=== PATIENT | female | born 1950 | race Caucasian/White ===

== ENCOUNTER → 2016-12-10 | Outpatient (CLI) | payer BC ==
[~2016-12-10] MED LIST: ACET-461 PO; ACYC400T PO; ASP81TEC PO; Acetaminophen PO; CATHETER FLUSH 10 ML SYR IV PRN; CEPH500T PO; CHOL100011 PO; CHOL10003 PO; ESTR42.52 VG; FEXO180T84 PO; IOHEXOL 350 MG/ML 100 ML (OMNIPAQUE 350) VIAL IV ONE; MULT-974 PO; NS 100 ML (IVPB) BAG IV ONE; OMEG1CAP51 PO; ONDA8TAB13 PO
--- OUTSIDE RECORDS SUMMARY | 2016-12-10 07:26 | XMS REPORT | Continuity of Care Document ---
Author Author [facility] Organization [facility] Address Unknown Phone Unavailable Care Team Providers Care Admin Secretary Name Role Phone SOREN LUJAN DO PCP Insurance Providers Payer Name Policy Number Sub[id number] Shaun Bain 18 Self / Same As Patient Advance Directives Directive Response Recorded Date/Time Advance Directives No 04/29/16 1:33am Health Care Power of Tumbling And Rolling Supervisor No 04/29/16 1:33am Organ Donor Yes 04/29/16 1:33am Resuscitation Status Full Code 04/29/16 1:33am Chief Complaint and Reason for Visit Chief Complaint Head/Cervical Problems Reason for Visit Palpitations Headache Disequilibrium Problems Active Problems Medical Problem Onset Date Status Chest pain Unknown Acute Closed head injury Unknown Acute Closed head injury Unknown Acute Disequilibrium Unknown Acute Headache Unknown Acute Migraine Unknown Acute Palpitations Unknown Acute Syncope Unknown Acute Medications Current Home Medications Medication Dose Units Route Directions Days/Qty Instructions Start Date Acyclovir 400 Mg 400 Mg Oral Daily 05/07/14 Estradiol 42.5 Gm 2 Gm Vaginal Tuesday & 05/07/14 Multivitamin 1 Each 2 Tab Oral Daily 05/07/14 Cholecalciferol 1,000 Unit 1,000 Unit Oral Daily 05/07/14 [place]-3 Fatty Acids/Fish Oil 1 Each 2,000 Mg Oral Daily 05/07/14 Acetaminophen 500 Mg 500 Mg Oral Daily as needed for Pain 05/07/14 Ondansetron 8 Mg 8 Mg Oral Every 6 Hours as needed for Nausea/Vomiting 10 05/07/14 Past Home Medications Medication Directions Ordered Status Acyclovir 400 Mg Tablet, 400 Mg Oral Daily 04/19/14 Discontinued Estradiol 42.5 Gm Cream.appl, 1 Applic Vaginal As Directed 04/19/14 Discontinued Aspirin 81 Mg Tabec, 162 Mg Oral Daily 04/19/14 Discontinued Multivitamin 1 Each Tablet, 2 Each Oral Daily 04/19/14 Discontinued Fexofenadine Hcl 180 Mg Tablet, 180 Mg Oral Daily 04/19/14 Discontinued Cholecalciferol 1,000 Unit Tablet, 1000 Unit Oral Daily 04/19/14 Discontinued [Acetaminophen] 500 Mg Tab, 1000 Mg Oral Every 6 Hours as needed for Pain Discontinued Social History Social History Problem Response Recorded Date/Time Alcohol Use Denies Use 04/29/2016 1:33am Recreational Drug Use No 04/29/2016 1:33am Recent Foreign Travel No 04/29/2016 1:33am Recent Infectious Disease Exposure No 04/29/2016 1:33am Smoking Status Never a Smoker 04/29/2016 1:33am Query Response Start Date Stop Date Smoking Status Never a Smoker Hospital Discharge Instructions No hospital discharge instructions. Plan of Care Discharge Date 04/29/16 4:40am Disposition 01 HOME, SELF-CARE Condition at Discharge Improved Instructions/Education Provided Palpitations (ED) Prescriptions See Medication Section Referrals SOREN LUJAN DO - Primary Care Physician Additional Instructions/Education Stay well-hydrated. Follow-up with Dr. Lujan as soon as possible. Discuss the possibility of a neurology referral with Dr. Lujan. All discharge instructions reviewed with patient and/or family. Voiced understanding. Functional Status Query Response Date Recorded Patient Orientation Person Place Time April 29, 2016 1:43am Comprehension Ability Understands Concepts April 29, 2016 1:43am Allergies, Adverse Reactions, Alerts Allergen Type Severity Reaction Status Last Updated Sulfa (Sulfonamide Antibiotics) ([id number]) Allergy Unknown Active 08/23 Immunizations No immunization records. Vital Signs Acute Vital Signs Vital Response Date/Time Temperature (Fahrenheit) 97.5 degrees F (97.6 - 99.5) 04/29/2016 1:33am Temperature (Calculated Celsius) 36.08697 degrees C (36.4 - 37.5) 04/29/2016 1:33am Temperature Source Temporal 04/29/2016 1:33am Pulse Rate (adult) 75 bpm (60 - 90) 04/29/2016 1:33am Respiratory Rate 18 bpm (12 - 24) 04/29/2016 1:33am O2 Sat by Pulse Oximetry 97 % (88 - 100) 04/29/2016 1:33am Blood Pressure 154/102 mm Hg 04/29/2016 1:33am Blood Pressure Mean 119 mm Hg 04/29/2016 1:33am Pain Numeric Pain Scale 5-Moderate Pain 04/29/2016 1:33am Height (Feet) 5 feet 04/29/2016 1:33am Height (Inches) 7 inches 04/29/2016 1:33am Height (Calculated Centimeters) 170.223411 cm 04/29/2016 1:33am Weight (Pounds) 135 pounds 04/29/2016 1:33am Weight (Ounces) 8.0 oz 04/29/2016 1:33am Weight (Calculated Grams) 02347.824 gm 04/29/2016 1:33am Weight (Calculated Kilograms) 61.220160 kilograms 04/29/2016 1:33am Calculated BMI 20.05 04/29/2016 1:33am Results Laboratory Results Test Name Result Units Flags Reference Collection Date/Time Result Date/ Time Comments White Blood Count 6.6 10^3/uL 4.3-11.0 04/29/2016 2:00am 04/29/2016 2: 12am Red Blood Count 4.93 10^6/uL 4.35-5.85 04/29/2016 2:00am 04/29/2016 2: 12am Hemoglobin 15.1 G/DL 11.5-16.0 04/29/2016 2:00am 04/29/2016 2:12am Hematocrit 44 % 35-52 04/29/2016 2:00am 04/29/2016 2:12am Mean Corpuscular Volume 89 FL 80-99 04/29/2016 2:00am 04/29/2016 2: 12am Mean Corpuscular Hemoglobin 31 PG 25-34 04/29/2016 2:00am 04/29/2016 2: 12am Mean Corpuscular Hemoglobin Concent 35 G/DL 32-36 04/29/2016 2:00am 2:12am Red Cell Distribution Width 13.5 % 10.0-14.5 04/29/2016 2:002015 2:12am Platelet Count 303 10^3/uL 130-400 04/29/2016 2:0004/29/2016 2:12am Mean Platelet Volume 10.0 FL 7.4-10.4 04/29/2016 2:00am 04/29/2016 2: 12am Neutrophils (%) (Auto) 45 % 42-75 04/29/2016 2:0004/29/2016 2:12am Lymphocytes (%) (Auto) 43 % 12-44 04/29/2016 2:0004/29/2016 2:12am Monocytes (%) (Auto) 7 % 0-12 04/29/2016 2:0004/29/2016 2:12am Eosinophils (%) (Auto) 4 % 0-10 04/29/2016 2:0004/29/2016 2:12am Basophils (%) (Auto) 1 % 0-10 04/29/2016 2:0004/29/2016 2:12am Neutrophils # (Auto) 3.0 X 10^3 1.8-7.8 04/29/2016 2:00am 04/29/2016 2: 12am Lymphocytes # (Auto) 2.9 X 10^3 1.0-4.0 04/29/2016 2:0004/29/2016 2: 12am Monocytes # (Auto) 0.5 X 10^3 0.0-1.0 04/29/2016 2:0004/29/2016 2: 12am Eosinophils # (Auto) 0.2 10^3/uL 0.0-0.3 04/29/2016 2:0004/29/2016 2 :12am Basophils # (Auto) 0.1 10^3/uL 0.0-0.1 04/29/2016 2:0004/29/2016 2: 12am Urine Color YELLOW 04/29/2016 1:4504/29/2016 2:18am Urine Clarity CLEAR 04/29/2016 1:4504/29/2016 2:18am Urine pH 7 5-9 04/29/2016 1:4504/29/2016 2:18am Urine Specific [place] 1.005 * 1.016-1.022 04/29/2016 1:45am 2015 2:18am Urine Protein NEGATIVE NEGATIVE 04/29/2016 1:45am 04/29/2016 2:18am Urine Glucose (UA) NEGATIVE NEGATIVE 04/29/2016 1:45am 04/29/2016 2: 18am Urine RBC (Auto) NEGATIVE NEGATIVE 04/29/2016 1:45am 04/29/2016 2: 18am Urine Ketones NEGATIVE NEGATIVE 04/29/2016 1:45am 04/29/2016 2:18am Urine Nitrite NEGATIVE NEGATIVE 04/29/2016 1:45am 04/29/2016 2:18am Urine Bilirubin NEGATIVE NEGATIVE 04/29/2016 1:45am 04/29/2016 2: 18am Urine Urobilinogen NORMAL MG/DL NORMAL 04/29/2016 1:45am 04/29/2016 2: 18am Urine Leukocyte Esterase NEGATIVE NEGATIVE 04/29/2016 1:45am 2015 2:18am Urine RBC NONE /HPF 04/29/2016 1:45am 04/29/2016 2:18am Urine WBC RARE /HPF 04/29/2016 1:45am 04/29/2016 2:18am Urine Bacteria TRACE /HPF 04/29/2016 1:45am 04/29/2016 2:18am Urine Squamous Epithelial Cells 0-2 /HPF 04/29/2016 1:45am 2015 2:18am Urine Crystals NONE /LPF 04/29/2016 1:45am 04/29/2016 2:18am Urine Casts NONE /LPF 04/29/2016 1:45am 04/29/2016 2:18am Urine Mucus NEGATIVE /LPF 04/29/2016 1:45am 04/29/2016 2:18am Urine Culture Indicated NO 04/29/2016 1:45am 04/29/2016 2:18am Sodium Level 135 MMOL/L 135-145 04/29/2016 2:00am 04/29/2016 2:40am Potassium Level 3.4 MMOL/L L 3.6-5.0 04/29/2016 2:00am 04/29/2016 2:40am Chloride Level 101 MMOL/L 98-107 04/29/2016 2:00am 04/29/2016 2:40am Carbon Dioxide Level 22 MMOL/L 21-32 04/29/2016 2:00am 04/29/2016 2: 40am Anion Gap 12 MMOL/L 5-14 04/29/2016 2:00am 04/29/2016 2:40am Blood Urea Nitrogen 15 MG/DL 7-18 04/29/2016 2:00am 04/29/2016 2:40am Creatinine 0.87 MG/DL 0.60-1.30 04/29/2016 2:00am 04/29/2016 2:40am BUN/Creatinine Ratio 17 04/29/2016 2:00am 04/29/2016 2:40am Estimat Glomerular Filtration Rate > 60 04/29/2016 2:00am 2015 2:40am GFR INTERPRETIVE DATA UNITS FOR ESTIMATED GFR (eGFR): mL/min/1.73 M2 REFERENCE RANGE FOR ESTIMATED GFR (eGFR) eGFR NORMAL eGFR >60 MODERATELY DECREASED eGFR 30-59 SEVERLY DECREASED eGFR 15-29 KIDNEY FAILURE <15 (OR DIALYSIS) Glucose Level 104 MG/DL 70-105 04/29/2016 2:00am 04/29/2016 2:40am Glucometer 95 MG/DL 70-110 04/29/2016 2:46am 04/29/2016 2:54am Calcium Level 9.7 MG/DL 8.5-10.1 04/29/2016 2:00am 04/29/2016 2:40am Magnesium Level 2.3 MG/DL 1.8-2.4 04/29/2016 2:00am 04/29/2016 2:40am Total Bilirubin 0.3 MG/DL 0.1-1.0 04/29/2016 2:00am 04/29/2016 2:40am Alkaline Phosphatase 61 U/L 40-136 04/29/2016 2:00am 04/29/2016 2:40am Aspartate Amino Transf (AST/SGOT) 50 U/L H 5-34 04/29/2016 2:00am 2015 2:40am Alanine Aminotransferase (ALT/SGPT) 51 U/L 0-55 04/29/2016 2:00am 04/29 2:40am Total Creatine Kinase 94 U/L 29-168 04/29/2016 2:00am 04/29/2016 3: 07am Total Protein 7.0 G/DL 6.4-8.2 04/29/2016 2:00am 04/29/2016 2:40am Albumin 4.4 G/DL 3.2-4.5 04/29/2016 2:00am 04/29/2016 2:40am TSH [place] Testing 3.98 UIU/ML 0.35-4.94 04/29/2016 2:00am 04/29/2016 2:51am Procedures Procedure Status Date Provider(s) Tracing only of electrocardiogram Active 04/29/16 BEBE KENNEY MD Encounters Encounter Location Arrival/Admit Date Discharge/Depart Date Attending Provider Departed Emergency Room [facility] 04/29/16 1:31am 04/29 4:40am BEBE KENNEY MD Recent Diagnosis
[2016-12-10 08:03] LABS: ANION GAP 10 MMOL/L (5-14); BLOOD UREA NITROGEN 14 MG/DL (7-18); BUN/CREATININE RATIO 17; CALCIUM 9.1 MG/DL (8.5-10.1); CARBON DIOXIDE 24 MMOL/L (21-32); CHLORIDE 107 MMOL/L (98-107); CREATININE SERUM 0.83 MG/DL (0.60-1.30); GFR ESTIMATED > 60; GLUCOSE 94 MG/DL (70-105); SODIUM 141 MMOL/L (135-145)
--- NOTE | 2016-12-10 09:09 | Diagnostic Imaging Report ---
PROCEDURE: CT abdomen and pelvis with and without contrast. TECHNIQUE: Precontrast acquisitions were acquired through the abdomen and pelvis. Multiple contiguous axial images were obtained through the abdomen and pelvis after the administration of intravenous contrast. INDICATION: Urinary tract or bladder pain, blood in urine. FINDINGS: There is a lobulated filling defect within the urinary bladder at its base eccentric to the left measuring 2.9 cm AP by about 3.3 cm transverse. It does show some peripheral hyperdensity on the precontrast enhanced images suggestive of partial calcification. Its density is not appreciably changed with contrast. I am uncertain if this is neoplasm or hematoma. It is at the level of the left trigone but did not obstruct the left ureter and there is no hydroureteronephrosis. The kidneys themselves appeared normal. The lung bases are nonacute. There is no liver mass. The gallbladder and bile ducts unremarkable. Adrenals, spleen and pancreas unremarkable. There is no abdominal, pelvic, mesenteric or retroperitoneal lymphadenopathy. Uterus absent or atrophic. There is no adnexal lesion. Lung bases and the osseous structures unremarkable. IMPRESSION: 1. Left paramedian bladder base filling defect partially calcified peripherally, heterogeneous in its density. We could not confirm definite enhancement following contrast but it could be masked by bladder contrast excretion. Its morphology is suspicious for neoplasm however organized hematoma could not be excluded. It did not result in hydronephrosis or ureteral obstruction and there is no lymphadenopathy or findings suggestive of metastatic disease. Cystoscopy may provide additional utility. 2. Study is otherwise normal. Dictated by: Dictated on workstation # [id number]
== END ==
LOC: RAD 07:22
PROVIDERS: ATTEND Internal Medicine
DX: R31.9 Hematuria, unspecified (principal)
CPT/HCPCS: 36415; 74178; 80048

== ENCOUNTER 2017-02-19 04:39 | Emergency (ER) | payer BC ==
[~2017-02-19] VITALS: Ht 170.2 cm; Wt 61.5 kg
[~2017-02-19 04:39] MED LIST changes: -CATHETER FLUSH 10 ML SYR IV PRN; -CEPH500T PO; -IOHEXOL 350 MG/ML 100 ML (OMNIPAQUE 350) VIAL IV ONE; -NS 100 ML (IVPB) BAG IV ONE
--- NOTE | 2017-02-19 05:03 | ED GU-Female ---
General Chief Complaint: -Female Stated Complaint: VAG BLEEDING Nursing Triage Note: Patient reports she is to have an outpatient surgery tuesday on her bladder. patient reports has intermittent bleeding but reports she is having bleeeding again but it is much worse Nursing Sepsis Screen: No Definite Risk Source: patient Exam Limitations: no limitations History of Present Illness Time seen by provider: 04:48 Initial Comments Here with report of hematuria. Does have known bladder tumor and has surgery scheduled for Tuesday to get the tumor removed. States that she has intermittent hematuria but that it has been worse tonight. She feels a discomfort like maybe she has a bladder infection. Denies fever but had some chills. Has some suprapubic tenderness. Timing/Duration: this morning Severity/Quality: mild, aching, other (hematuria) Location: suprapubic, urethral, other Radiation: none Activities at Onset: none Prior Genitourinary Problems: similar symptoms Modifying Factors: Improves With Resting, Worsens With Urinating Associated Symptoms: dysuria, urinary frequency Allergies and Home Medications Allergies Coded Allergies: Sulfa (Sulfonamide Antibiotics) (Unverified Allergy, Unknown, 04/19/14) Home Medications Acetaminophen 500 Mg Tablet, 500 MG PO DAILY PRN for PAIN, (Reported) Acyclovir 400 Mg Tablet, 400 MG PO DAILY, (Reported) Cephalexin 500 Mg Tablet, 500 MG PO QID, #13 Ref 0 Prescribed by: BINTA OLEARY on 02/19/17 0525 Cholecalciferol 1,000 Unit Capsule, 1,000 UNIT PO DAILY, (Reported) Estradiol 42.5 Gm Cream.appl, 2 GM VG TUESDAY & TUESDAY, (Reported) Multivitamin 1 Each Tablet, 2 TAB PO DAILY, (Reported) [place]-3 Fatty Acids/Fish Oil 1 Each Capsule, 2,000 MG PO DAILY, (Reported) Constitutional: see HPI, chills, No fever Respiratory: no symptoms reported Cardiovascular: no symptoms reported Gastrointestinal: see HPI, No diarrhea, No vomiting Genitourinary: see HPI, hematuria : No Musculoskeletal: no symptoms reported All Other Systemes Reviewed Negative Unless Noted: Yes Past Wjcbogc-Zchxlk-Evxrwf Hx Patient Social History Alcohol Use: Denies Use Recreational Drug Use: No Smoking Status: Never a Smoker Recent Foreign Travel: No Contact w/Someone Who Travel: No Recent Infectious Disease Expo: No Recent Hopitalizations: No Immunizations Up To Date PED Vaccines UTD: Yes Surgeries HX Surgeries: Yes Surgeries: Hysterectomy, Oophorectomy Respiratory Hx Respiratory Disorders: No Cardiovascular Hx Cardiac Disorders: No Neurological Hx Neurological Disorders: Yes (history of closed head injury and concussion) Reproductive System Hx Reproductive Disorders: No Genitourinary Hx Genitourinary Disorders: No Gastrointestinal Hx Gastrointestinal Disorders: No Musculoskeletal Hx Musculoskeletal Disorders: No Endocrine Hx Endocrine Disorders: No HEENT HX ENT Disorders: Yes Hearing Impairment: Bilateral Hearing Aide Cancer Hx Cancer: No Psychosocial Hx Psychiatric Problems: No Integumentary HX Skin/Integumentary Disorder: No Blood Transfusions Hx Blood Disorders: No Reviewed Nursing Assessment Reviewed/Agree w Nursing PMH: Yes Family Medical History Family Medial History: Cancer 19 FATHER ( LUNG CANCER 61) G8 BROTHER (PROSTATE) Family history: Cardiovascular disease 19 MOTHER (BYPASS AT 85) Myocardial infarction 19 FATHER, Onset:50's - 60 Physical Exam Vital Signs Vital Sign - Last 12Hours 02/19/17 04:46 Temp 97.3 Pulse 80 Resp 18 B/P (MAP) 152/85 Pulse Ox 97 O2 Delivery Room Air Capillary Refill : Less Than 3 Seconds General Appearance: WD/WN, no apparent distress Cardiovascular: regular rate, rhythm, no murmur Respiratory: lungs clear, normal breath sounds Gastrointestinal: non tender, soft Back: normal inspection, no CVA tenderness, no vertebral tenderness Extremities: non-tender, normal inspection Neurologic/Psychiatric: alert, oriented x 3 Skin: normal color, warm/dry Progress/Results/Core Measures Results/Orders Lab Results Laboratory Tests Test 02/19/17 05:00 Range/Units White Blood Count 8.2 4.3-11.0 10^3/uL Red Blood Count 4.76 4.35-5.85 10^6/uL Hemoglobin 14.4 11.5-16.0 G/DL Hematocrit 43 35-52 % Mean Corpuscular Volume 90 80-99 FL Mean Corpuscular Hemoglobin 30 25-34 PG Mean Corpuscular Hemoglobin Concent 34 32-36 G/DL Red Cell Distribution Width 13.5 10.0-14.5 % Platelet Count 322 130-400 10^3/uL Mean Platelet Volume 10.1 7.4-10.4 FL Neutrophils (%) (Auto) 56 42-75 % Lymphocytes (%) (Auto) 34 12-44 % Monocytes (%) (Auto) 8 0-12 % Eosinophils (%) (Auto) 2 0-10 % Basophils (%) (Auto) 1 0-10 % Neutrophils # (Auto) 4.5 1.8-7.8 X 10^3 Lymphocytes # (Auto) 2.8 1.0-4.0 X 10^3 Monocytes # (Auto) 0.7 0.0-1.0 X 10^3 Eosinophils # (Auto) 0.2 0.0-0.3 10^3/uL Basophils # (Auto) 0.0 0.0-0.1 10^3/uL Sodium Level 137 135-145 MMOL/L Potassium Level 3.8 3.6-5.0 MMOL/L Chloride Level 103 98-107 MMOL/L Carbon Dioxide Level 21 21-32 MMOL/L Anion Gap 13 5-14 MMOL/L Blood Urea Nitrogen 16 7-18 MG/DL Creatinine 1.05 0.60-1.30 MG/DL Estimat Glomerular Filtration Rate 53 BUN/Creatinine Ratio 15 Glucose Level 113 H 70-105 MG/DL Calcium Level 9.5 8.5-10.1 MG/DL Total Bilirubin 0.6 0.1-1.0 MG/DL Aspartate Amino Transf (AST/SGOT) 32 5-34 U/L Alanine Aminotransferase (ALT/SGPT) 35 0-55 U/L Alkaline Phosphatase 53 40-136 U/L Total Protein 7.2 6.4-8.2 G/DL Albumin 4.3 3.2-4.5 G/DL My Orders Orders - BINTA OLEARY MD Cbc With Automated Diff (02/19/17 04:53) Comprehensive Metabolic Panel (02/19/17 04:53) Ua Culture If Indicated (02/19/17 04:53) Cephalexin Capsule (Keflex Capsule) (02/19/17 05:04) Vital Signs/I&O Vital Sign - Last 12Hours 02/19/17 04:46 Temp 97.3 Pulse 80 Resp 18 B/P (MAP) 152/85 Pulse Ox 97 O2 Delivery Room Air Blood Pressure Mean: 107 Progress Note : Progress Note Seen and evaluated. UA and labs ordered. Patient did attempt to give urine sample but was mostly blood. I will go ahead and treat for possible urinary tract infection especially given that she is scheduled for procedure in 2 days. Keflex 500 mg by mouth given. Monitor patient. 0535: Patient Stable. Labs reviewed. No acute findings. Unable to provide urine sample we will treat UTI anyway. She will call her urologist today. Discharged home with return precautions. Patient verbalize understanding instructions and agreement with plan. Departure Impression Impression: Primary Impression: Hematuria Disposition: HOME, SELF-CARE Condition: Stable Departure-Patient Inst. Decision time for Depature: 05:21 Referrals: SOREN DENIS DO (PCP/Family) Primary Care Physician Patient Instructions: Blood in the Urine (Hematuria), Adult (DC) Add. Discharge Instructions: All discharge instructions reviewed with patient and/or family. Voiced understanding. Drink plenty of fluids. Take medications as directed. Follow-up with your doctor on Tuesday as scheduled. Return for worse pain, swelling, breathing problems, weakness, inability to urinate, increasing bladder pain or other concerns as needed. Scripts Cephalexin (Cephalexin) 500 Mg Tablet 500 MG PO QID, #13 TAB 0 Refills Prov: BINTA OLEARY MD 02/19/17 BINTA OLEARY MD February 19, 2017 05:03
[2017-02-19] MEDS ORDERED: CEPHALEXIN 250 MG (KEFLEX) CAP PO STA (05:04)
[2017-02-19 05:10] LABS: BASOPHILS % (AUTO) 1 % (0-10); EOSINOPHILS # (AUTO) 0.2 10^3/uL (0.0-0.3); EOSINOPHILS % (AUTO) 2 % (0-10); LYMPHOCYTES # (AUTO) 2.8 X 10^3 (1.0-4.0); LYMPHOCYTES % (AUTO) 34 % (12-44); MEAN CORPUSCULAR HEMOGLOBIN 30 PG (25-34); MEAN CORPUSCULAR HGB CONC 34 G/DL (32-36); MEAN CORPUSCULAR VOLUME 90 FL (80-99); MEAN PLATELET VOLUME 10.1 FL (7.4-10.4); MONOCYTES # (AUTO) 0.7 X 10^3 (0.0-1.0); MONOCYTES % (AUTO) 8 % (0-12); NEUTROPHILS # (AUTO) 4.5 X 10^3 (1.8-7.8); NEUTROPHILS % (AUTO) 56 % (42-75); PLATELET COUNT 322 10^3/uL (130-400); RED BLOOD COUNT 4.76 10^6/uL (4.35-5.85); RED CELL DISTRIBUTION WIDTH 13.5 % (10.0-14.5); WHITE BLOOD COUNT 8.2 10^3/uL (4.3-11.0)
[2017-02-19] MEDS ORDERED: CEPH500T PO (05:25)
[2017-02-19 05:31] LABS: ALBUMIN 4.3 G/DL (3.2-4.5); BILIRUBIN,TOTAL 0.6 MG/DL (0.1-1.0); CALCIUM 9.5 MG/DL (8.5-10.1); CREATININE SERUM 1.05 MG/DL (0.60-1.30); POTASSIUM 3.8 MMOL/L (3.6-5.0); TOTAL PROTEIN 7.2 G/DL (6.4-8.2)
[2017-02-19 05:36] VITALS: BP 152/85
== END 2017-02-19 05:36 | disposition home or self-care (01) ==
LOC: EDUNIT# 04:39 → ER 04:42
DX: N30.91 Cystitis, unspecified with hematuria (principal); D41.4 Neoplasm of uncertain behavior of bladder
CPT/HCPCS: 36415; 80053; 85025; 99283

== ENCOUNTER 2017-02-19 10:56 | Emergency (ER) | payer BC ==
[~2017-02-19] VITALS: Ht 170.2 cm; Wt 60.8 kg
[~2017-02-19 10:56] MED LIST changes: +CEPH500T PO
--- NOTE | 2017-02-19 12:24 | ED GU-Female ---
General Chief Complaint: -Female Stated Complaint: BLADDER BLEEDING, CANT URINATE Nursing Triage Note: AMB TO ED PMH OF BLADDER TUMOR. IS TO HAVE SURG AT [facility] ON TUESDAY. WAS SEEN IN ED AT 430 TODAY WITH INCREASE URINARY RETENTION. WAS GIVEN KEFLEX . CON'T HAVE PROBLEM WITH URINATING. CALLED DR CALVIN MARY ADVISED TO COME TO ER AND HAVE CARTER PLACED. Nursing Sepsis Screen: No Definite Risk Source: patient Exam Limitations: no limitations History of Present Illness Time seen by provider: 12:17 Initial Comments This 66-year-old white female presents with persistent hematuria and suprapubic discomfort. The patient was evaluated in the emergency department at 430 this morning for bleeding which was felt to be secondary to a bladder tumor which is to be excised by her urologist on Tuesday. The patient's discomfort however progressed after her discharge from emergency departments morning with the sensation of urinary retention. Patient has been taking Keflex as prescribed. The patient's urologist recommended that she return here to [facility] for placement of a catheter to help assist in the drainage of her urine. Patient denies fever, chills, back pain, or significant radiation of the sharp suprapubic pain she is experiencing. Allergies and Home Medications Allergies Coded Allergies: Sulfa (Sulfonamide Antibiotics) (Unverified Allergy, Unknown, 04/19/14) Home Medications Acetaminophen 500 Mg Tablet, 500 MG PO DAILY PRN for PAIN, (Reported) Acyclovir 400 Mg Tablet, 400 MG PO DAILY, (Reported) Cephalexin 500 Mg Tablet, 500 MG PO QID, #13 Ref 0 Prescribed by: BINTA OLEARY on 02/19/17 0525 Cholecalciferol 1,000 Unit Capsule, 1,000 UNIT PO DAILY, (Reported) Estradiol 42.5 Gm Cream.appl, 2 GM VG TUESDAY & TUESDAY, (Reported) Multivitamin 1 Each Tablet, 2 TAB PO DAILY, (Reported) [place]-3 Fatty Acids/Fish Oil 1 Each Capsule, 2,000 MG PO DAILY, (Reported) Constitutional: No chills, No fever EENTM: no symptoms reported Respiratory: No cough Cardiovascular: No chest pain Gastrointestinal: abdominal pain, No diarrhea, No vomiting, other (patient is complaining of sharp suprapubic discomfort.) Genitourinary: see HPI, burning, denies discharge, dysuria, frequency, hematuria Musculoskeletal: No back pain Skin: No change in color, No rash Psychiatric/Neurological: No Symptoms Reported Hematologic/Lymphatic: No Symptoms Reported Past Pwfpumt-Lplamd-Jbfcon Hx Patient Social History Recent Foreign Travel: No Contact w/Someone Who Travel: No Recent Infectious Disease Expo: No Recent Hopitalizations: No Immunizations Up To Date PED Vaccines UTD: Yes Surgeries HX Surgeries: Yes Surgeries: Hysterectomy, Oophorectomy Respiratory Hx Respiratory Disorders: No Cardiovascular Hx Cardiac Disorders: No Neurological Hx Neurological Disorders: Yes (history of closed head injury and concussion) Reproductive System Hx Reproductive Disorders: No Genitourinary Hx Genitourinary Disorders: No Gastrointestinal Hx Gastrointestinal Disorders: No Musculoskeletal Hx Musculoskeletal Disorders: No Endocrine Hx Endocrine Disorders: No HEENT HX ENT Disorders: Yes Hearing Impairment: Bilateral Hearing Aide Cancer Hx Cancer: No Psychosocial Hx Psychiatric Problems: No Integumentary HX Skin/Integumentary Disorder: No Blood Transfusions Hx Blood Disorders: No Reviewed Nursing Assessment Reviewed/Agree w Nursing PMH: Yes Family Medical History Family Medial History: Cancer 19 FATHER ( LUNG CANCER 61) G8 BROTHER (PROSTATE) Family history: Cardiovascular disease 19 MOTHER (BYPASS AT 85) Myocardial infarction 19 FATHER, Onset:50's - 60 Physical Exam Vital Signs Vital Sign - Last 12Hours 02/19/17 10:59 Temp 98.4 Pulse 90 Resp 18 B/P (MAP) 174/100 Pulse Ox 95 Capillary Refill : Less Than 3 Seconds General Appearance: WD/WN, mild distress HEENT: normal ENT inspection Neck: normal inspection Cardiovascular: regular rate, rhythm Respiratory: lungs clear Gastrointestinal: normal bowel sounds, non tender Pelvic: normal external exam Extremities: normal range of motion Neurologic/Psychiatric: no motor/sensory deficits, alert Skin: normal color, warm/dry Progress/Results/Core Measures Results/Orders My Orders Orders - SARY GARCIA MD Catheter(Urinary) To Dependent (02/19/17 11:40) Tramadol Tablet (Ultram Tablet) (02/19/17 12:00) Medications Given in ED Current Medications Medications Dose Ordered Sig/Miriam Route Start Time Stop Time Status Last Admin Dose Admin Tramadol HCl 100 mg ONCE ONCE PO 02/19/17 12:00 02/19/17 12:01 DC 02/19/17 11:56 100 MG Vital Signs/I&O Vital Sign - Last 12Hours 02/19/17 10:59 Temp 98.4 Pulse 90 Resp 18 B/P (MAP) 174/100 Pulse Ox 95 Blood Pressure Mean: 124 Progress Note : Time: 12:22 Progress Note After a discussion of the options with the patient a 20-gauge triple lumen Carter catheter was placed. The patient demonstrated a residual of approximate 400 mL of bloody urine. The patient's bladder scan following placement of the triple-lumen Carter catheter demonstrated no residual urine. The patient was given Ultram 100 mg orally for her discomfort. The patient was given a tube of viscous Xylocaine for application to the area urethral meatus that she was still having some discomfort. Patient was asked to call or return to emergency department should any further problems or questions. Departure Impression Impression: Primary Impression: Urinary retention Additional Impression: Hematuria Disposition: HOME, SELF-CARE Condition: Improved Departure-Patient Inst. Decision time for Depature: 12:26 Referrals: SOREN DENIS DO (PCP/Family) Primary Care Physician Add. Discharge Instructions: Ultram for pain. Continue with Keflex as prescribed. Follow-up with urologist on Tuesday for excision of your bladder tumor as planned. Return to emergency department if any problems or questions All discharge instructions reviewed with patient and/or family. Voiced understanding. SARY GARCIA MD February 19, 2017 12:24
[2017-02-19 12:39] LABS: BILIRUBIN,URINE NEGATIVE (NEGATIVE); KETONES,URINE 2+ (NEGATIVE); LEUKOCYTE ESTERASE ,URINE NEGATIVE (NEGATIVE); NITRITE,URINE NEGATIVE (NEGATIVE); PH,URINE 7 (5-9); PROTEIN,URINE 4+ (NEGATIVE); UROBILINOGEN,URINE NORMAL (NORMAL)
[2017-02-19] MEDS ORDERED: LIDOCAINE 2% VISCOUS 15 ML UDC PO ONE (12:45)
[2017-02-19 12:54] VITALS: BP 154/92
[2017-02-19 13:14] LABS: WBC,URINE RARE /HPF
== END 2017-02-19 13:00 | disposition home or self-care (01) ==
LOC: EDUNIT# 10:56 → ER 10:57
DX: R33.9 Retention of urine, unspecified (principal); R31.0 Gross hematuria; D41.4 Neoplasm of uncertain behavior of bladder
CPT/HCPCS: 51702; 81000

== ENCOUNTER 2017-02-23 09:28 | Emergency (ER) | payer BC ==
[~2017-02-23] VITALS: Ht 170.2 cm; Wt 60.8 kg
--- NOTE | 2017-02-23 09:58 | ED Lower Extremity ---
General Chief Complaint: Lower Extremity Stated Complaint: RIGHT LEG PAIN Source: patient History of Present Illness Time seen by provider: 09:40 Initial Comments PT STATES SHE HAD SURGERY TO REMOVE A BLADDER TUMOR ON Tuesday02/21/[address] THOMPSON AT [facility] THIS AM, SHE WOKE UP WITH PAIN IN RIGHT LATERAL HIP/GROIN/LATERAL UPPER THIGH AREA CALLED. DR. THOMPSON'S OFFICE AND WAS TOLD TO COME HER TO "GET CHECKED FOR A BLOOD CLOT" STATES SHE FELT FINE WHEN SHE WENT TO BED LAST PM NO INJURY NO PARESTHESIAS OR MOTOR DEFICITS NO SWELLING OF LEG NO REDNESS, BRUISING, ETC. NO BACK PAIN NO PROBLEMS FROM SURGERY ITSELF--STATES SHE IS "DOING GREAT" FROM THAT STANDPOINT PCP: DR. DENIS Allergies and Home Medications Allergies Coded Allergies: Sulfa (Sulfonamide Antibiotics) (Unverified Allergy, Unknown, 04/19/14) Home Medications Acetaminophen 500 Mg Tablet, 500 MG PO DAILY PRN for PAIN, (Reported) Acyclovir 400 Mg Tablet, 400 MG PO DAILY, (Reported) Cephalexin 500 Mg Tablet, 500 MG PO QID, #13 Ref 0 Prescribed by: BINTA OLEARY on 02/19/17 0525 Cholecalciferol 1,000 Unit Capsule, 1,000 UNIT PO DAILY, (Reported) Estradiol 42.5 Gm Cream.appl, 2 GM VG TUESDAY & TUESDAY, (Reported) Multivitamin 1 Each Tablet, 2 TAB PO DAILY, (Reported) [place]-3 Fatty Acids/Fish Oil 1 Each Capsule, 2,000 MG PO DAILY, (Reported) Constitutional: no symptoms reported Respiratory: no symptoms reported Cardiovascular: no symptoms reported Gastrointestinal: no symptoms reported Genitourinary: see HPI Musculoskeletal: see HPI Skin: no symptoms reported Psychiatric/Neurological: No Symptoms Reported Past Fpbbkqe-Mnmbnl-Mttnmb Hx Patient Social History Recent Foreign Travel: No Contact w/Someone Who Travel: No Recent Hopitalizations: No Immunizations Up To Date PED Vaccines UTD: Yes Surgeries HX Surgeries: Yes (REMOVAL OF BLADDER TUMOR 02/21/[address] THOMPSON/[facility]) Surgeries: Bladder Surgery, Hysterectomy, Oophorectomy Respiratory Hx Respiratory Disorders: No Cardiovascular Hx Cardiac Disorders: No Neurological Hx Neurological Disorders: Yes (history of closed head injury and concussion) Neurological Disorders: Concussion Reproductive System Hx Reproductive Disorders: No Genitourinary Hx Genitourinary Disorders: Yes (BLADDER TUMOR) Gastrointestinal Hx Gastrointestinal Disorders: No Musculoskeletal Hx Musculoskeletal Disorders: No Endocrine Hx Endocrine Disorders: No HEENT HX ENT Disorders: Yes Hearing Impairment: Bilateral Hearing Aide Cancer Hx Cancer: No Psychosocial Hx Psychiatric Problems: No Integumentary HX Skin/Integumentary Disorder: No Blood Transfusions Hx Blood Disorders: No Family Medical History Family Medial History: Cancer 19 FATHER ( LUNG CANCER 61) G8 BROTHER (PROSTATE) Family history: Cardiovascular disease 19 MOTHER (BYPASS AT 85) Myocardial infarction 19 FATHER, Onset:50's - 60 Physical Exam Vital Signs Vital Sign - Last 12Hours 02/23/17 09:55 Temp 97.5 Pulse 70 Resp 16 B/P (MAP) 144/89 Pulse Ox 98 Capillary Refill : General Appearance: WD/WN, no apparent distress, other (WALKS WITHOUT DIFFICULTY), thin Gastrointestinal: non tender, soft Hips: left hip normal inspection, right hip other (MILD TENDERNESS TO LATERAL RIGHT HIP AREA. FULL ROM. NO SWELLING. NEGATIVE ANN'S. 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, no motor/sensory deficits, alert, normal mood/affect, oriented x 3 Skin: normal color, warm/dry Progress/Results/Core Measures Results/Orders My Orders Orders - LANEY MAYER DO Pelvis (02/23/17 09:49) Hip, Right, 2 Views (02/23/17 09:49) Us Venous Lower Ext Rt (02/23/17 09:49) Vital Signs/I&O Vital Sign - Last 12Hours 02/23/17 09:55 Temp 97.5 Pulse 70 Resp 16 B/P (MAP) 144/89 Pulse Ox 98 Progress Note : Progress Note DISCUSSED WITH PT AND THAT PAIN IS LIKELY FROM POSITIONING DURING SURGERY--PT AGREES AND STATES IS EXACTLY WHAT IT FEELS LIKE PT DECLINES ANY PAIN MEDICATIONS DURING ER STAY Diagnostic Imaging Comments XRAYS RIGHT HIP AND PELVIS--NO ACUTE PROCESS VENOUS DOPPLER RIGHT LEG--NO DVT OR ACUTE PROCESS PER RADIOLOGIST REPORTS @ 1034 Reviewed: Reviewed by Me Departure Impression Impression: Primary Impression: MUSCULOSKELETAL PAIN OF RIGHT HIP Disposition: HOME, SELF-CARE Condition: Stable Departure-Patient Inst. Referrals: SOREN DENIS DO (PCP/Family) Primary Care Physician Patient Instructions: Hip Pain (DC), Muscle and Bone Pain (DC) Add. Discharge Instructions: ALTERNATE ICE AND HEAT TO AREA AT 20 MINUTE INTERVALS ACTIVITIES TOLERATED TYLENOL AND MOTRIN OR YOUR HOME PRESCRIPTION PAIN MEDICATION NEEDED FOR PAIN FOLLOW UP WITH YOUR DR IN 1 WEEK IF NO BETTER All discharge instructions reviewed with patient and/or family. Voiced understanding. Images Extremities-Lower 1 - Mild, Tenderness LANEY MAYER DO February 23, 2017 09:58
--- NOTE | 2017-02-23 10:24 | Diagnostic Imaging Report ---
EXAMINATION: Two views of the right hip. INDICATION: Right hip pain. FINDINGS: No fracture, dislocation, or radiopaque foreign body. Mild subchondral sclerosis is seen at the hip joint. IMPRESSION: Mild degenerative change. Dictated by: Dictated on workstation # [id number]
--- NOTE | 2017-02-23 10:26 | Diagnostic Imaging Report ---
AP view of the pelvis. INDICATION: Right hip pain and tightness. No injury. FINDINGS: No fracture, dislocation, or radiopaque foreign body. There is a rotated appearance of the pelvis with the left side of the pelvis higher than the right side. There is also suggestion of left convexity scoliosis of the lumbar spine. The hip joints demonstrate mild subchondral sclerosis without significant joint space loss. Mild SI joint sclerotic degenerative changes also seen. IMPRESSION: Mild degenerative changes in the SI and hip joints. Tilted position of the pelvis is presumably secondary to the prominent lumbar spine scoliosis. Dictated by: Dictated on workstation # [id number]
--- NOTE | 2017-02-23 10:31 | Diagnostic Imaging Report ---
EXAMINATION: Right lower extremity duplex venous ultrasound. TECHNIQUE: DVT protocol. Multiple sonographic images with color Doppler and waveform interrogation were performed of the right lower extremity veins with compression and augmentation maneuvers. INDICATION: Right leg pain. FINDINGS: The right lower extremity veins from the groin to below the knee veins were examined with normal color-flow, compressibility and normal waveform demonstrated. The great saphenous vein is patent. IMPRESSION: No evidence of DVT in the right lower extremity. Dictated by: Dictated on workstation # [id number]
[2017-02-23 11:00] VITALS: BP 132/80
== END 2017-02-23 11:00 | disposition home or self-care (01) ==
LOC: EDUNIT# 09:28 → ER 09:29
DX: M79.604 Pain in right leg (principal); M41.26 Other idiopathic scoliosis, lumbar region; Z98.890 Other specified postprocedural states
CPT/HCPCS: 72170; 73502; 99285

== ENCOUNTER → 2017-03-17 | Outpatient (CLI) | payer BC ==
[~2017-03-17] MED LIST changes: +BARIUM SUSPENSION 2.1% (VANILLA SILQ) 450 ML PO ONE; +CATHETER FLUSH 10 ML SYR IV PRN; +IOHEXOL 350 MG/ML 100 ML (OMNIPAQUE 350) VIAL IV ONE; +NS 100 ML (IVPB) BAG IV ONE
--- NOTE | 2017-03-17 13:38 | Diagnostic Imaging Report ---
PROCEDURE: CT chest with contrast, CT abdomen and pelvis with and without contrast. TECHNIQUE: Pre and post intravenous contrast axial imaging of the abdomen and pelvis and post contrast axial imaging of the chest were performed. INDICATION: Bladder carcinoma. There are no previous CT chest examinations available for comparison. FINDINGS: The CT abdomen/pelvis exam of 12/10/16 did reveal a left paramedian bladder base filling defect. 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 On this study, the mass involving the base of the bladder noted previously has diminished in size considerably. This area now measures 0.9 x 1.4 x 1.6 cm as opposed to 2.9 x 3.3 x 3.1 cm on the prior exam. There is still a 2.8 x 6.2 x 4.8 cm soft tissue density along the anterior aspect of the bladder base and contiguous with the rectosigmoid portion of the colon. This finding is of uncertain etiology but could be secondary to the cervix. This does not appear to have changed significantly since the prior exam. There is no pelvic mass or free fluid collection to suggest an acute abnormality. There does not appear to be any significant adenopathy along the pelvic sidewalls either. The liver, spleen, pancreas, adrenals, kidneys, gallbladder, aorta and inferior vena cava are unremarkable for an acute abnormality. As noted previously, the abdominal aorta is ectatic. The stomach is filled with oral contrast and difficult to assess. The images through the thorax show that there is a noncalcified fairly well marginated 0.6 x 0.9 cm nodular density in the right midlung. This portion of the right lung was not included on the previous CT abdomen/pelvis exam. This finding does not have an aggressive appearance and I feel it is unlikely this is related to neoplastic disease. Even so, as there are no previous studies available for comparison, a short-term (3 month) followup CT chest exam would be recommended for additional study. The lungs are otherwise clear. There is no sign of failure, pneumonia or pleural effusion. The ascending aorta is prominent measuring 3.7 x 3.8 cm. There is no sign of a dissection. There is no defect within the pulmonary arteries to indicate a pulmonary embolus. There is no mediastinal or hilar adenopathy. 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 The thyroid gland, where visualized, is unremarkable. The bone windows show no sign of a fracture or of a destructive lesion. There are bilateral pars defects at L5. There is also fairly severe levoscoliosis of the thoracolumbar junction. There is no obvious breast mass. IMPRESSION: 1. The mass involving the bladder seen on the previous exam has decreased in size significantly. There is no evidence for pelvic adenopathy to suggest metastatic disease related to the bladder neoplasm. 2. The soft tissue density along the anterior aspect of the bladder base and the rectosigmoid portion of the colon may be related to the cervix although this has somewhat of a bulky appearance. Correlation with the patient's physical exam would be recommended. 3. There is no acute abnormality of the abdomen or pelvis identified. 4. The small oval parenchymal nodule in the right midlung is of uncertain etiology although it does not have an aggressive appearance. Even so, the possibility that this is related to neoplasm cannot be entirely excluded. Recommendations as above. 5. There is no acute cardiopulmonary abnormality. Dictated by: Dictated on workstation # [id number]
--- NOTE | 2017-03-17 19:10 | Diagnostic Imaging Report ---
EXAMINATION: Whole body bone scan. Technique: After the intravenous administration of 25.9 mCi of Technetium 99m MDP, whole body delayed phase bone scan images were obtained with lateral views of the head and neck and the chest regions. INDICATION: Bladder cancer. FINDINGS: There is prominent scoliosis in the upper lumbar spine convexed to the left side with mild degenerative changes seen. No intense areas of increased uptake is seen, particularly within the axial skeleton, to suggest metastatic disease. Renal and urinary bladder activity from excretion of radiotracer is noted. IMPRESSION: No scintigraphic evidence of osseous metastasis. Dictated by: Dictated on workstation # [id number]
== END ==
LOC: CARD 11:49
PROVIDERS: ATTEND Internal Medicine Hematology & Oncology
DX: C67.9 Malignant neoplasm of bladder, unspecified (principal); R91.1 Solitary pulmonary nodule
CPT/HCPCS: 71260; 74178; 78306

== ENCOUNTER 2017-03-22 09:53 | Outpatient (RCR) | payer BC ==
[2017-03-16 15:19] LABS: BASOPHILS % (AUTO) 1 % (0-10); EOSINOPHILS # (AUTO) 0.1 10^3/uL (0.0-0.3); EOSINOPHILS % (AUTO) 1 % (0-10); LYMPHOCYTES # (AUTO) 2.3 X 10^3 (1.0-4.0); LYMPHOCYTES % (AUTO) 29 % (12-44); MEAN CORPUSCULAR HEMOGLOBIN 30 PG (25-34); MEAN CORPUSCULAR HGB CONC 33 G/DL (32-36); MEAN CORPUSCULAR VOLUME 92 FL (80-99); MEAN PLATELET VOLUME 10.4 FL (7.4-10.4); MONOCYTES # (AUTO) 0.4 X 10^3 (0.0-1.0); MONOCYTES % (AUTO) 5 % (0-12); NEUTROPHILS % (AUTO) 65 % (42-75); PLATELET COUNT 297 10^3/uL (130-400); RED BLOOD COUNT 4.77 10^6/uL (4.35-5.85); RED CELL DISTRIBUTION WIDTH 13.9 % (10.0-14.5); WHITE BLOOD COUNT 7.8 10^3/uL (4.3-11.0)
[2017-03-16 15:37] LABS: ALBUMIN 4.7 G/DL (3.2-4.5); BILIRUBIN,TOTAL 0.5 MG/DL (0.1-1.0); CALCIUM 9.9 MG/DL (8.5-10.1); CREATININE SERUM 0.96 MG/DL (0.60-1.30); POTASSIUM 3.8 MMOL/L (3.6-5.0); TOTAL PROTEIN 7.7 G/DL (6.4-8.2)
[~2017-03-22] VITALS: Ht 167.6 cm; Wt 56.2 kg
[~2017-03-22 09:53] MED LIST changes: +CISPLATIN IV SCH; +FOSAPREPITANT 150 MG/NS 150 MG IVPB (CANCER CTR) IV SCH; +GEMCITABINE HCL IV SCH; +MAGNESIUM SULFATE IV SCH; +MANNITOL IV SCH; +NS IV 1000 ML (CANCER CTR) IV SCH; +PALONOSETRON 0.25 MG, DEXAMETHASONE 10 MG/NS 50 ML IVPB IV SCH; +[UNRECOGNIZED DRUG - OTHER] IV SCH; +[UNRECOGNIZED DRUG - OTHER] IV SCH
== END 2017-06-14 | disposition home or self-care (01) ==
LOC: ONC 09:53
PROVIDERS: ATTEND Internal Medicine Hematology & Oncology
DX: C67.8 Malignant neoplasm of overlapping sites of bladder (principal)
CPT/HCPCS: 36415; 80053; 83615; 85025; 99214

== ENCOUNTER → 2017-03-22 | Outpatient (CLI) | payer BC ==
[~2017-03-22] MED LIST changes: -BARIUM SUSPENSION 2.1% (VANILLA SILQ) 450 ML PO ONE; -CATHETER FLUSH 10 ML SYR IV PRN; -IOHEXOL 350 MG/ML 100 ML (OMNIPAQUE 350) VIAL IV ONE; -NS 100 ML (IVPB) BAG IV ONE
--- NOTE | 2017-03-23 12:11 | Diagnostic Imaging Report ---
EXAMINATION: PET-CT. TECHNIQUE: Serum glucose level at the time of the study is: 121 mg/dL. 12.0 mCi of FDG was administered intravenously followed by obtaining PET images with corresponding noncontrast CT scan images. The CT scan was performed for anatomic correlation and attenuation correction and was not performed according to the diagnostic protocol of the areas covered. The scan was performed from the head to mid thighs. INDICATION: Bladder cancer initial staging. FINDINGS: There is symmetric FDG uptake in the brain. In the neck there is no significant hypermetabolic lesion seen. No significant hypermetabolism is seen in the chest. The nodule along the right major fissure is not hypermetabolic; however, it is less than 1 cm in size and is not well evaluated by PET. Based on its morphology, it is favored to be related to a scar. In the abdomen and pelvis there is urinary tract excretion of the tracer as expected. There is no hypermetabolic enlarged lymph node in the abdomen or pelvis. Urinary bladder high-intensity activity from excretion is seen with no separable adjacent hypermetabolic mass or defect within the bladder noted. A hypermetabolic lesion along the bladder wall can be overlooked as it would be obscured by the extensive activity in the lumen of the urinary bladder from the tracer excretion. IMPRESSION: 1. No hypermetabolic enlarged lymph nodes or other mass is seen to suggest metastatic disease. 2. Bladder lesions could be obscured on PET from physiologic excretion. 3. An 8-mm elongated nodule along the mid right major fissure is favored to be a scar based on its morphology. It is too small for accurate PET characterization. Dictated by: Dictated on workstation # [id number]
== END ==
LOC: RAD 11:19
PROVIDERS: ATTEND Nurse Practitioner Adult Health
DX: C67.0 Malignant neoplasm of trigone of bladder (principal)

== ENCOUNTER → 2017-04-20 | Outpatient (CLI) | payer BC ==
[~2017-04-20] MED LIST changes: -CISPLATIN IV SCH; -FOSAPREPITANT 150 MG/NS 150 MG IVPB (CANCER CTR) IV SCH; -GEMCITABINE HCL IV SCH; -MAGNESIUM SULFATE IV SCH; -MANNITOL IV SCH; -NS IV 1000 ML (CANCER CTR) IV SCH; -PALONOSETRON 0.25 MG, DEXAMETHASONE 10 MG/NS 50 ML IVPB IV SCH; -[UNRECOGNIZED DRUG - OTHER] IV SCH; -[UNRECOGNIZED DRUG - OTHER] IV SCH
[2017-04-20 12:13] LABS: RED BLOOD COUNT 3.66 10^6/uL (4.35-5.85); RED CELL DISTRIBUTION WIDTH 13.6 % (10.0-14.5); WHITE BLOOD COUNT 5.3 10^3/uL (4.3-11.0)
[2017-04-20 12:29] LABS: ALANINE AMINOTRANSFERASE 32 U/L (0-55); ALBUMIN 3.6 GM/DL (3.2-4.5); ANION GAP 10 MMOL/L (5-14); ASPARTATE AMINO TRANSFERASE 24 U/L (5-34); BILIRUBIN,TOTAL 0.3 MG/DL (0.1-1.0); BLOOD UREA NITROGEN 11 MG/DL (7-18); BUN/CREATININE RATIO 14; CALCIUM 8.9 MG/DL (8.5-10.1); CARBON DIOXIDE 22 MMOL/L (21-32); CHLORIDE 107 MMOL/L (98-107); CREATININE SERUM 0.79 MG/DL (0.60-1.30); GFR ESTIMATED > 60; GLUCOSE 96 MG/DL (70-105); POTASSIUM 3.6 MMOL/L (3.6-5.0); SODIUM 139 MMOL/L (135-145); TOTAL PROTEIN 6.3 GM/DL (6.4-8.2)
== END ==
LOC: HH 12:07
PROVIDERS: ATTEND Urology
DX: C67.9 Malignant neoplasm of bladder, unspecified (principal); Z43.5 Encounter for attention to cystostomy
CPT/HCPCS: 80053; 85027

== ENCOUNTER → 2017-07-26 | Outpatient (CLI) | payer BC ==
[~2017-07-26] MED LIST changes: +IOHEXOL 350 MG/ML 100 ML (OMNIPAQUE 350) VIAL IV ONE; +NS 100 ML (IVPB) BAG IV ONE
--- NOTE | 2017-07-26 13:41 | Diagnostic Imaging Report ---
PROCEDURE: CT abdomen and pelvis with and without contrast. TECHNIQUE: Precontrast acquisitions were acquired through the abdomen and pelvis. Multiple contiguous axial images were obtained through the abdomen and pelvis after the administration of intravenous contrast. INDICATION: Bladder cancer. Vaginal bleeding. Pelvic pain. 100 mL of Omnipaque 350 is administered intravenously. COMPARISON: Correlation with PET/CT from 03/23/[address] scan of 03/17/2017 is reviewed. FINDINGS: In the lower pelvis, there is a mass with heterogenous enhancement seen measuring 5.9 x 3.1 x 4.2 cm. This compares to 6.2 x 2.8 x 4.8 cm prior measurements. It is minimally smaller in size. It appears to be inseparable from the vagina and the area of the cervix. The patient is presumed to have had a hysterectomy with preservation of the cervix. Correlate with surgical history. This mass has poor differentiation from the urethra and also is not well differentiated from the anal canal or the perineum. There is interval cystectomy performed with an ileal conduit and an ileostomy in the right lower quadrant. There is no pelvic lymphadenopathy identified. In the abdomen, the lung bases appear clear. The liver, the gallbladder, the spleen, the adrenal glands and the pancreas appear unremarkable. The kidneys have symmetric enhancement and contrast excretion. The unenhanced phase demonstrates no kidney or ureteric stones. There is suture material seen along multiple bowel loops. The abdominal aorta is normal in caliber. No para-aortic significantly enlarged lymph node is seen. No significant free fluid or fluid collection in the abdomen or pelvis is noted. The osseous structures demonstrate prominent scoliosis convex to the left at the thoracolumbar junction. IMPRESSION: Minimally smaller 5.9 cm mass centered around the upper vagina without obvious separation from the urethra, the anorectal junction posteriorly and from the cervix superiorly concerning for residual tumor. Dictated by: Dictated on workstation # [id number]
== END ==
LOC: RAD 11:35
PROVIDERS: ATTEND Urology
DX: N89.8 Other specified noninflammatory disorders of vagina (principal); R10.2 Pelvic and perineal pain; C67.9 Malignant neoplasm of bladder, unspecified
CPT/HCPCS: 36415; 74178; 82565

== ENCOUNTER → 2017-09-08 | Outpatient (CLI) | payer BC ==
[~2017-09-08] MED LIST changes: +CATHETER FLUSH 10 ML SYR IV PRN
[2017-09-08 14:42] LABS: ANION GAP 12 MMOL/L (5-14); BLOOD UREA NITROGEN 14 MG/DL (7-18); BUN/CREATININE RATIO 16; CALCIUM 9.6 MG/DL (8.5-10.1); CARBON DIOXIDE 23 MMOL/L (21-32); CHLORIDE 103 MMOL/L (98-107); CREATININE SERUM 0.86 MG/DL (0.60-1.30); GFR ESTIMATED > 60; GLUCOSE 112 MG/DL (70-105); POTASSIUM 4.1 MMOL/L (3.6-5.0); SODIUM 138 MMOL/L (135-145)
--- NOTE | 2017-09-08 16:43 | Diagnostic Imaging Report ---
PROCEDURE: CT abdomen and pelvis with and without contrast. TECHNIQUE: Precontrast acquisitions were acquired through the abdomen and pelvis. Multiple contiguous axial images were obtained through the abdomen and pelvis after the administration of intravenous contrast. INDICATION: Bladder cancer. Severe vaginal pain after surgery performed five weeks ago. 100 mL of Omnipaque-350 is administered intravenously. FINDINGS: The lung bases demonstrate a subpleural nodule in the right lower lobe measuring 1.3 x 0.8 cm that appears to be new from 07/26/2017 exam concerning for metastasis. There is a fat-containing diaphragmatic hernia posteriorly on the left side. The liver, the gallbladder, the spleen, the adrenal glands, and the pancreas appear unremarkable. The abdominal aorta is normal in caliber. No para-aortic significantly enlarged lymph node is seen. There is a pelvic enhancing mass measuring 2.3 x 2 x 1.9 cm abutting the anterolateral wall of the anorectal junction just above the pelvic floor muscles. This is concerning for tumor recurrence after the recent reported resection. There is a right abdominal stoma in place. No bowel obstruction. The unenhanced phase demonstrates no urinary tract stones. There is no hydronephrosis. The osseous structures demonstrate severe scoliotic curvature convex to the left centered around the upper lumbar spine and degenerative changes. IMPRESSION: 1. New posterior right lung base nodule measuring 1.3 cm is concerning for metastasis. 2. Enhancing mass measuring 2.3 cm abutting the anterolateral aspect of the anorectal junction is concerning for remaining or recurrent tumor. Report was faxed to the office of Dr. Zhen Marsh at 4:35 p.m., by maira (for [email or web address]). Dictated by: Dictated on workstation # [id number]
== END ==
LOC: RAD 14:07
PROVIDERS: ATTEND Urology
DX: K62.89 Other specified diseases of anus and rectum (principal); R91.1 Solitary pulmonary nodule; C67.8 Malignant neoplasm of overlapping sites of bladder; Z98.890 Other specified postprocedural states
CPT/HCPCS: 36415; 74178; 80048

== ENCOUNTER 2017-10-27 09:57 | Outpatient (RCR) | payer BC ==
[2017-10-13 10:24] LABS: BASOPHILS % (AUTO) 0 % (0-10); EOSINOPHILS # (AUTO) 0.1 10^3/uL (0.0-0.3); EOSINOPHILS % (AUTO) 1 % (0-10); HEMATOCRIT 32 % (35-52); HEMOGLOBIN 11.7 G/DL (11.5-16.0); LYMPHOCYTES # (AUTO) 1.7 X 10^3 (1.0-4.0); LYMPHOCYTES % (AUTO) 16 % (12-44); MEAN CORPUSCULAR HEMOGLOBIN 26 PG (25-34); MEAN CORPUSCULAR HGB CONC 37 G/DL (32-36); MEAN CORPUSCULAR VOLUME 71 FL (80-99); MEAN PLATELET VOLUME 8.6 FL (7.4-10.4); MONOCYTES # (AUTO) 1.3 X 10^3 (0.0-1.0); MONOCYTES % (AUTO) 12 % (0-12); NEUTROPHILS % (AUTO) 72 % (42-75); PLATELET COUNT 597 10^3/uL (130-400); RED BLOOD COUNT 4.44 10^6/uL (4.35-5.85); RED CELL DISTRIBUTION WIDTH 16.3 % (10.0-14.5); WHITE BLOOD COUNT 11.1 10^3/uL (4.3-11.0)
[2017-10-13 10:48] LABS: BILIRUBIN,TOTAL 0.4 MG/DL (0.1-1.0); CALCIUM 10.3 MG/DL (8.5-10.1); CREATININE SERUM 1.06 MG/DL (0.60-1.30); POTASSIUM 3.6 MMOL/L (3.6-5.0); TOTAL PROTEIN 7.9 GM/DL (6.4-8.2)
[2017-10-20 11:40] LABS: BASOPHILS % (AUTO) 0 % (0-10); EOSINOPHILS % (AUTO) 0 % (0-10); HEMATOCRIT 29 % (35-52); HEMOGLOBIN 9.7 G/DL (11.5-16.0); LYMPHOCYTES # (AUTO) 0.7 X 10^3 (1.0-4.0); LYMPHOCYTES % (AUTO) 6 % (12-44); MEAN CORPUSCULAR HEMOGLOBIN 27 PG (25-34); MEAN CORPUSCULAR HGB CONC 33 G/DL (32-36); MEAN CORPUSCULAR VOLUME 80 FL (80-99); MEAN PLATELET VOLUME 9.6 FL (7.4-10.4); MONOCYTES # (AUTO) 1.2 X 10^3 (0.0-1.0); MONOCYTES % (AUTO) 10 % (0-12); NEUTROPHILS # (AUTO) 9.7 X 10^3 (1.8-7.8); NEUTROPHILS % (AUTO) 84 % (42-75); PLATELET COUNT 484 10^3/uL (130-400); RED BLOOD COUNT 3.61 10^6/uL (4.35-5.85); RED CELL DISTRIBUTION WIDTH 17.5 % (10.0-14.5); WHITE BLOOD COUNT 11.6 10^3/uL (4.3-11.0)
[2017-10-20 12:00] LABS: ALANINE AMINOTRANSFERASE 12 U/L (0-55); ALBUMIN 3.7 GM/DL (3.2-4.5); ALKALINE PHOSPHATASE 80 U/L (40-136); BILIRUBIN,TOTAL 0.4 MG/DL (0.1-1.0); BUN/CREATININE RATIO 28; CALCIUM 9.9 MG/DL (8.5-10.1); CARBON DIOXIDE 21 MMOL/L (21-32); CHLORIDE 97 MMOL/L (98-107); CREATININE SERUM 0.79 MG/DL (0.60-1.30); GFR ESTIMATED > 60; GLUCOSE 152 MG/DL (70-105); POTASSIUM 3.2 MMOL/L (3.6-5.0); SODIUM 132 MMOL/L (135-145); TOTAL PROTEIN 7.4 GM/DL (6.4-8.2)
[~2017-10-27 09:57] MED LIST changes: -CATHETER FLUSH 10 ML SYR IV PRN; -IOHEXOL 350 MG/ML 100 ML (OMNIPAQUE 350) VIAL IV ONE; -NS 100 ML (IVPB) BAG IV ONE; +NS IV 1000 ML (CANCER CTR) 1,000 ML ONE
== END 2017-12-20 | disposition home or self-care (01) ==
LOC: ONC 09:57
PROVIDERS: ATTEND Internal Medicine Hematology & Oncology
DX: Z51.0 Encounter for antineoplastic radiation therapy (principal); C67.0 Malignant neoplasm of trigone of bladder; C78.01 Secondary malignant neoplasm of right lung; C79.89 Secondary malignant neoplasm of other specified sites; R10.2 Pelvic and perineal pain; N18.3 Chronic kidney disease, stage 3 (moderate); Z79.899 Other long term (current) drug therapy
CPT/HCPCS: 36415; 77280; 77290; 77295; 77300; 77307; 77334; 77336; 77417; 80053; 83615; 85025; 96360; 96361; 99213; 99214